=== PATIENT | female | born 1930 | race Caucasian/White ===

== ENCOUNTER 2017-11-03 15:04 | Observation (INO) ==
[2017-11-03] MEDS ORDERED: 0.9 % Sodium Chloride 1,000 ML IVC ONE (15:28)
--- NOTE | 2017-11-03 15:34 | Emergency Department Note ---
Disposition Clinical Impression: UTI (urinary tract infection) Qualifiers: Urinary tract infection type: site unspecified Hematuria presence: without hematuria Qualified Code(s): N39.0 - Urinary tract infection, site not specified Back pain Qualifiers: Back pain location: low back pain Chronicity: unspecified Back pain laterality : midline Sciatica presence: without sciatica Qualified Code(s): M54.5 - Low back pain Altered mental status Qualifiers: Altered mental status type: unspecified Qualified Code(s): R41.82 - Altered mental status, unspecified Disposition: Admitted As Inpatient Condition: Fair Referrals: Zaid Haynes MD [Primary Care Provider] - Forms: ED Satisfaction Letter Time of Disposition: 17:31 Neuro HPI - General Chief Complaint: ED Neuro Symptoms/Deficit Stated Complaint: Neuro stymptoms last know well 1 week Time Seen by Provider: 11/03/17 15:26 Source: patient, family Mode of arrival: ambulatory Limitations: no limitations Nursing Notes Reviewed: Yes Vital Signs Reviewed: Yes - History of Present Illness HPI Narrative: 87-year-old female presents for evaluation of altered mental status lower leg weakness. Patient also has low back pain. Last known was approximately week ago. At that time the patient's family noted the patient did have some slurred speech which appears to be improving. No history of CVAs. Patient has been complaining of atraumatic lower back pain. Patient was seen at the chiropractor today and was noted have decreased reflexes of the left leg. Family also notes the patient has been having urinary incontinence. Patient denies any bowel incontinence. Denies any chest pain short of breath. Family states that the patient is also altered and lives at home without any nursing assistance. Denies any traumas or falls. Denies being on any blood thinners. - Related Data Home Medications: Home Medications Medication Instructions Recorded Confirmed Aspirin/Calcium Carbonate/Mag 325 mg PO TID PRN 11/03/17 11/03/17 [Bufferin 325 mg Tablet] Calcium Carbonate [Calcium] 600 mg PO DAILY 11/03/17 11/03/17 Cholecalciferol (D-3) [Vitamin D] 1,000 unit PO DAILY 11/03/17 11/03/17 Ferrous Sulfate [Iron] 650 mg PO DAILY 11/03/17 11/03/17 Lisinopril [Zestril] 40 mg PO DAILY 11/03/17 11/03/17 Allergies/Adverse Reactions: Allergies Allergy/AdvReac Type Severity Reaction Status Date / Time Penicillins Allergy Hives Verified 11/03/17 15:07 All systems ED: reviewed and negative except as stated. Constitutional: Denies: fever Cardiovascular: Denies: chest pain Respiratory: Denies: cough, dyspnea Gastrointestinal: Denies: abdominal pain, nausea, vomiting Genitourinary: Denies: urgency, dysuria Musculoskeletal: Reports: back pain Past Medical History - Past Medical History Source: patient, obtained from family Medical history: Reports: coronary artery disease, hyperlipidemia, hypertension , osteoporosis Psychiatric history: Reports: no psych history - Social History Smoking Status: Never smoker Smokeless Tobacco Status: No Alcohol use: Reports: none Drug use: Reports: none Physical Exam - General Limitations: no limitations General appearance: alert, in no apparent distress - Head Head exam: atraumatic, normocephalic, normal inspection - Eye Eye exam: Present: normal appearance, PERRL, EOMI - ENT ENT exam: normal exam, normal oropharynx, mucous membranes moist - Neck Neck exam: Present: normal inspection, trachea midline - Chest Chest inspection: Present: normal inspection, symmetric chest wall rise - Respiratory Respiratory exam: Present: normal lung sounds bilaterally. Absent: respiratory distress - Cardiovascular Cardiovascular exam: Present: regular rate, normal rhythm. Absent: systolic murmur - Abdominal Exam Abdominal exam: Present: soft, Non-Tender - Extremities Exam Extremities exam: Present: normal inspection. Absent: pedal edema - Expanded Lower Extremity Exam Hip/Pelvis exam: Present: normal inspection. Absent: tenderness Upper leg exam: Present: normal inspection Knee exam: Present: normal inspection Lower leg exam: Present: normal inspection Ankle exam: Present: normal inspection Neurovascular/Tendon exam: Present: normal capillary refill. Absent: pulse deficit, motor deficit, sensory deficit - Back Exam Back exam: Present: normal inspection, tenderness - Neurological Exam Neurological exam: Present: alert, CN II-XII intact - Expanded Neurological Exam Patient oriented to: Present: person. Absent: place, time Speech: Present: fluid speech Cranial nerves: EOM function (II, III, IV, ): Normal, facial sensation (V): Normal, facial palsy (VII): Normal, spinal accessory function (XI): Normal, tongue deviation (XII): Normal Cerebellar function: finger to nose: Normal Motor strength - LUE: 5/5 Motor strength - RUE: 5/5 Motor strength - LLE: 5/5 Motor strength - RLE: 5/5 Sensory exam upper extremity: light touch: Normal Sensory exam lower extremity: light touch: Normal DTR: patellar (L): 0, patellar (R): 0 Coma Scale Eye Opening: Spontaneous Coma Scale Motor Response: Obeys Commands Coma Scale Verbal Response: Confused Coma Scale Total: 14 Course Vital Signs Temperature 98.2 F 11/03/17 15:07 Pulse Rate 77 11/03/17 15:07 Respiratory Rate 15 11/03/17 15:07 Blood Pressure 165/79 11/03/17 15:07 O2 Sat by Pulse Oximetry 97 11/03/17 15:07 Temperature 98.2 F 11/03/17 15:07 Pulse Rate 77 11/03/17 15:07 Respiratory Rate 15 11/03/17 15:07 Blood Pressure 165/79 11/03/17 15:07 O2 Sat by Pulse Oximetry 97 11/03/17 15:07 Oxygen Delivery Oxygen Delivery Room Air Neuro Symptoms/Deficit - MDM Narrative Medical decision making narrative: 87 year old female patient for evaluation of altered mental status and back pain. Patient does have history of back pain. Patient family is concerned the patient has difficulty ambulating. No recent falls or trauma noted. Clinic visit exam the patient has decreased symmetric reflexes bilaterally with atrophy. Attempted to get MRI of the lumbar spine. Patient was able to get MRI due to history of IVC filter. Patient was noted to have urinary tract infection. Likely explained her urinary incontinence. Patient was also found to have a negative head CT. Patient was not a stroke alert given the time set of symptoms. Patient would benefit from formal PT OT evaluation as well as discharge planning during her hospital course. - Lab Data Lab results reviewed: Yes I reviewed the patient's lab results. Result diagrams: 11/03/17 16:40 11/03/17 16:40 Lab Results 11/03/17 11/03/17 11/03/17 Range/Units 16:39 16:40 16:40 WBC 10.2 (4.3-11.1) K/mcL RBC 5.20 H (3.82-4.97) M/mcL Hgb 12.7 (11.5-15.4) g/dL Hct 41.7 (35.3-44.9) % MCV 80.2 L (83.0-100.0) fL MCH 24.4 L (28.0-33.3) pg MCHC 30.5 L (31.6-35.5) g/dL RDW 18.5 H (11.5-14.5) % Plt Count 224 (140-400) K/mcL MPV 10.9 (9.4-12.4) fL Immature Gran % 0.2 (0-4) % Seg Neutrophils % 55.1 % Lymphocytes % 32.6 % Monocytes % 7.4 % Eosinophils % 3.9 % Basophils % 0.8 % Neutrophils # 5.6 (1.6-8.9) K/mcL Lymphocytes # 3.3 (0.6-4.6) K/mcL Monocytes # 0.8 (0.0-1.3) K/mcL Eosinophils # 0.4 (0.0-0.6) K/mcL Basophils # 0.1 (0.0-0.2) K/mcL PT 10.7 (9.4-12.1) Seconds INR 1.0 APTT 30.2 (26.0-36.0) Seconds Sodium (136-145) mEq/L Potassium (3.5-5.1) mEq/L Chloride (98-107) mEq/L Carbon Dioxide (23-29) mEq/L BUN (8-23) mg/dL Creatinine (0.60-1.20) mg/dL Est GFR ( Amer) (> 60) Est GFR (Non-Af Amer) (> 60) BUN/Creatinine Ratio (6-26) Glucose (70-105) mg/dL Calculated Osmolality (280-300) Calcium (8.6-10.3) mg/dL Creatine Kinase (30-223) Units/L Troponin I (< 0.04) ng/mL Urine Color Yellow (Yellow) Urine Clarity Cloudy A (Clear) Urine pH 6.5 (5.0-8.0) pH Units Ur Specific Lyles 1.013 (1.010-1.025) Urine Protein 30 H (Neg-Trace) mg/dL Urine Glucose (UA) Normal (Normal) mg/dL Urine Ketones Negative (Negative) mg/dL Urine Blood Negative (Negative) Urine Nitrite Negative (Negative) Urine Bilirubin Negative (Negative) Urine Urobilinogen Normal (Normal) mg/dL Ur Leukocyte Esterase Large H (Negative) Urine Microscopic RBC 0-3 (0-3) per hpf Urine Microscopic WBC 50-100 H (0-3) per hpf Ur Squamous Epith Cells Many H (None-Few) per lpf Ur Renal Epithelial Cell Moderate H (None-Few) per hpf Urine Bacteria None Seen (None-Few) per hpf Hyaline Casts None Seen (None-Few) per lpf Ur Culture Indicated? NO. (NO) 11/03/17 11/03/17 11/03/17 Range/Units 16:40 16:40 16:40 WBC (4.3-11.1) K/mcL RBC (3.82-4.97) M/mcL Hgb (11.5-15.4) g/dL Hct (35.3-44.9) % MCV (83.0-100.0) fL MCH (28.0-33.3) pg MCHC (31.6-35.5) g/dL RDW (11.5-14.5) % Plt Count (140-400) K/mcL MPV (9.4-12.4) fL Immature Gran % (0-4) % Seg Neutrophils % % Lymphocytes % % Monocytes % % Eosinophils % % Basophils % % Neutrophils # (1.6-8.9) K/mcL Lymphocytes # (0.6-4.6) K/mcL Monocytes # (0.0-1.3) K/mcL Eosinophils # (0.0-0.6) K/mcL Basophils # (0.0-0.2) K/mcL PT (9.4-12.1) Seconds INR APTT (26.0-36.0) Seconds Sodium 139 (136-145) mEq/L Potassium 3.3 L (3.5-5.1) mEq/L Chloride 103 (98-107) mEq/L Carbon Dioxide 27 (23-29) mEq/L BUN 10 (8-23) mg/dL Creatinine 0.95 (0.60-1.20) mg/dL Est GFR ( Amer) > 60 (> 60) Est GFR (Non-Af Amer) 56 L (> 60) BUN/Creatinine Ratio 11 (6-26) Glucose 92 (70-105) mg/dL Calculated Osmolality 287 (280-300) Calcium 11.5 H (8.6-10.3) mg/dL Creatine Kinase 15 L (30-223) Units/L Troponin I < 0.03 (< 0.04) ng/mL Urine Color (Yellow) Urine Clarity (Clear) Urine pH (5.0-8.0) pH Units Ur Specific Lyles (1.010-1.025) Urine Protein (Neg-Trace) mg/dL Urine Glucose (UA) (Normal) mg/dL Urine Ketones (Negative) mg/dL Urine Blood (Negative) Urine Nitrite (Negative) Urine Bilirubin (Negative) Urine Urobilinogen (Normal) mg/dL Ur Leukocyte Esterase (Negative) Urine Microscopic RBC (0-3) per hpf Urine Microscopic WBC (0-3) per hpf Ur Squamous Epith Cells (None-Few) per lpf Ur Renal Epithelial Cell (None-Few) per hpf Urine Bacteria (None-Few) per hpf Hyaline Casts (None-Few) per lpf Ur Culture Indicated? (NO) - Radiology Data Radiology results reviewed: Yes I reviewed the patient's radiology results. Head CT 11/03/17 15:28 IMPRESSION: 1. No acute intracranial abnormality. 2. 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 3. 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 D/ / 11/03/2017 16:11:32 Denis Tucker MD / heath Interpreting Provider: Denis Tucker MD Chest X-Ray 11/03/17 15:29 IMPRESSION: Hypoaeration without acute process. D/ / 11/03/2017 16:04:09 Nasim Naidu MD / heath Interpreting Provider: Nasim Naidu MD - EKG Data EKG attestation: Yes I reviewed and interpreted this EKG. EKG shows normal: sinus rhythm Rate: normal Rhythm: NSR [place]/QRS: normal T wave inversions noted in: v1, v2, v3 When compared to previous EKG there are: changes noted Interpretation: nonspecific ST-T wave changes S.B.A.Brooke. - S.Karl Situation: Demographics Background: Presenting Complaint Assessment: Vital Signs, Course and respsone to treatment, Patient/Family Expectation Recommendation: Barrier(s) to disposition, Recommendation based on pending studies, treatments, or consults SKirti Report Given to: Luis West Repor Time: 17:30 Attestation Statement - Attestation Attestation: I examined this patient and my medical decision-making was reviewed with the Resident Physician. I agree with the documented findings, disposition and treatment plan as described except to the extent set forth below. Patient presents to the ED with weakness. Patient sent in by her chiropractor. She has been on some neurologic symptoms for a week. Difficulty with speech. Dragging her left leg. Urinary incontinence. There concern for UTI. Possible stroke. Patient has a history of dementia. On examination she is awake alert. Pleasantly confused. Diminished but symmetric patellar reflexes + 1 bilaterally. Sensation intact. No tenderness over the lumbar spine. Plan. Stroke workup with imaging of the spine. Unable to MRI her spine as they cannot find the information on her Jeevan filter. We will CT and admit. Patient has a UTI. Antibiotics given.
[2017-11-03 16:55] LABS: Basophils # 0.1 K/mcL (0.0-0.2); Basophils % 0.8 %; Eosinophils # 0.4 K/mcL (0.0-0.6); Eosinophils % 3.9 %; Hematocrit 41.7 % (35.3-44.9); Hemoglobin 12.7 g/dL (11.5-15.4); Immature Granulocytes % 0.2 % (0-4); Lymphocytes # 3.3 K/mcL (0.6-4.6); Lymphocytes % 32.6 %; Mean Corpuscular HGB Conc 30.5 g/dL (31.6-35.5); Mean Corpuscular Hemoglobin 24.4 pg (28.0-33.3); Mean Corpuscular Volume 80.2 fL (83.0-100.0); Mean Platelet Volume 10.9 fL (9.4-12.4); Monocytes # 0.8 K/mcL (0.0-1.3); Monocytes % 7.4 %; Neutrophils # 5.6 K/mcL (1.6-8.9); Platelet Count 224 K/mcL (140-400); Red Cell Distribution Width 18.5 % (11.5-14.5); Segmented Neutrophils % 55.1 %
[2017-11-03 16:55] LABS: Bilirubin,Urine Negative (Negative); Blood,Urine Negative (Negative); Clarity,Urine Cloudy (Clear); Color,Urine Yellow (Yellow); Glucose,Urine (UA) Normal (Normal); Ketones,Urine Negative (Negative); Leukocyte Esterase,Urine Large (Negative); Nitrite,Urine Negative (Negative); PH,Urine 6.5 pH Units (5.0-8.0); Protein,Urine 30 mg/dL (Neg-Trace); Specific Gravity,Urine 1.013 (1.010-1.025); Urobilinogen,Urine Normal (Normal)
[2017-11-03 16:57] LABS: Bacteria,Urine None Seen per hpf (None-Few); Hyaline Casts,Urine None Seen per lpf (None-Few); RBC,Urine 0-3 per hpf (0-3); Squamous Epithelial Cell,Urine Many per lpf (None-Few); WBC,Urine 50-100 per hpf (0-3)
[2017-11-03 17:03] LABS: Prothrombin Time 10.7 Seconds (9.4-12.1)
[2017-11-03 17:06] LABS: Activated Partial Thrombo Time 30.2 Seconds (26.0-36.0)
[2017-11-03 17:10] LABS: BUN/Creatinine Ratio 11 (6-26); Blood Urea Nitrogen 10 mg/dL (8-23); Calcium 11.5 mg/dL (8.6-10.3); Carbon Dioxide 27 mEq/L (23-29); Chloride 103 mEq/L (98-107); Glucose 92 mg/dL (70-105); Osmolality,Calculated 287 (280-300); Potassium 3.3 mEq/L (3.5-5.1); Sodium 139 mEq/L (136-145); eGFR For African Americans > 60 (> 60); eGFR For Non-African Americans 56 (> 60)
[2017-11-03 17:17] LABS: Renal Epithelial Cells,Urine Moderate per hpf (None-Few)
[2017-11-03] MEDS ORDERED: cefTRIAXone 1,000 MG in Water for inj. (sterile) 20 ML 10 ML IVP ONE (17:29)
--- NOTE | 2017-11-03 20:12 | Internal Med History&Physical ---
Date of Encounter: 11/03/17 Time of Encounter: 20:09 Assessment and Plan (1) Spinal stenosis Current visit: Yes Status: Acute Severe spinal stenosis with mild impingement E CT of the lumbosacral spine for detail will consult Dr. Sierra Qualifiers: Spinal region: lumbosacral Qualified Code(s): M48.07 - Spinal stenosis, lumbosacral region (2) HTN (hypertension) Current visit: Yes Status: Chronic Chronic Uncontrolled Resume Home Medication Adjustment Qualifiers: Hypertension type: essential hypertension Qualified Code(s): I10 - Essential (primary) hypertension (3) Hyperlipidemia Current visit: Yes Status: Chronic Chronic recheck in a.m. Qualifiers: Hyperlipidemia type: pure hypercholesterolemia Qualified Code(s): E78.00 - Pure hypercholesterolemia, unspecified; E78.0 - Pure hypercholesterolemia (4) Altered mental status Current visit: Yes Status: Acute More confused with slow family will consult neurology for further evaluation patient unable to undergo MRI due to IVC filter Qualifiers: Altered mental status type: disorientation Qualified Code(s): R41.0 - Disorientation, unspecified (5) Back pain Current visit: Yes Status: Acute Chronic but worsening pain due to severe spinal stenosis with nerve impingement Qualifiers: Back pain location: low back pain Chronicity: unspecified Back pain laterality: midline Sciatica presence: with sciatica Sciatica laterality: bilateral sciatica Qualified Code(s): M54.41 - Lumbago with sciatica, right side; M54.42 - Lumbago with sciatica, left side; M54.42 - Lumbago with sciatica , left side Internal Medicine - H&P: HPI Chief complaint: bilat leg weakness Admitted From: Emergency Dept Plans for Post Hospital Care: Home History of present illness: Ms. Ceja is a 87 year old female Patient with history of hypertension, CAD, high cholesterol, osteoporosis, patient was brought in by family due to mental status changes of some confusion but more concerning is bilateral leg weakness and worsening low back pain family also noticed some slurred speech she was taken to a chiropractor today and the chiropractor on exam noted s bilateral decreased reflexes of both lower extremity and that she was has sent to the emergency room family also reported urinary incontinence and difficulty ambulating the family said almost have to carry herto the bathroom and back to bed Evaluation in the ER ct of lumbar sacral spine shows severe central, lumbar stenosis with impingement of the L4 roots. Patient will be admitted for further evaluation will consult spinal surgery Dr. Bharat Sierra family also concern about poor po intake Past Med Surg Social Fam HX - Past Medical History Medical history: coronary artery disease, hyperlipidemia, hypertension, osteoporosis Psychiatric history: no psych history - Social History Smoking Status: Never smoker Smokeless Tobacco Status: No Alcohol use: none Drug use: none Internal Medicine - H&P: Meds Aspirin/Calcium Carbonate/Mag [Bufferin 325 mg Tablet] 325 mg PO TID PRN [History] Calcium Carbonate [Calcium] 600 mg PO DAILY 11/03/17 [History] Cholecalciferol (D-3) [Vitamin D] 1,000 unit PO DAILY 11/03/17 [History] Ferrous Sulfate [Iron] 650 mg PO DAILY 11/03/17 [History] Lisinopril [Zestril] 40 mg PO DAILY 11/03/17 [History] 3 Allergy/AdvReac Type Severity Reaction Status Date / Time Penicillins Allergy Hives Verified 11/03/17 15:07 All Systems PM: A 10-system review of systems was performed and is negative for pertinent findings except as documented above in the HPI. - Constitutional Constitutional: anorexia - EENT Eyes: no change in vision, no discharge, no pain, no photophobia Ears: no ear discharge, no ear pain, no tinnitus Nose, mouth and throat: no dysphagia, no nasal discharge, no neck pain, no sore throat - Cardiovascular Cardiovascular ROS IM: no chest pain, no diaphoresis, no dyspnea, no lightheadedness, no palpitations, no syncope - Respiratory Respiratory: no cough, no dyspnea, no wheezing, no excessive phlegm production - Gastrointestinal Additional comments: urinary incontinence - Constitutional Vitals: Temp Pulse Resp BP Pulse Ox 98.2 F 72 16 180/98 96 11/03/17 15:07 11/03/17 18:37 11/03/17 19:36 11/03/17 19:36 11/03/17 18:37 General appearance: Present: mild distress - Eye Eye exam: Present: PERRL, conjuntiva pink, sclera anicteric Pupils: Present: PERRL - Neck Neck exam general surgery: Present: supple, trachea midline. Absent: lymphadenopathy - Respiratory Respiratory exam: Present: CTAB. Absent: accessory muscle use, rales, rhonchi, wheezes - Cardiovascular Cardiovascular exam: Present: RRR, +S1, +S2. Absent: diastolic murmur, gallop, rubs, systolic murmur - GI/Abdominal GI/Abdominal exam: Present: normal bowel sounds, soft, no peritoneal signs. Absent: distended, tenderness Internal Med - H&P Results - Labs CBC & Chem 7: 11/03/17 16:40 11/03/17 16:40
[2017-11-03] MEDS ORDERED: Acetaminophen 325 MG TABLET PO PRN (20:20)
[2017-11-03] MEDS ORDERED: Naloxone 0.4 MG/ML INJ IVP PRN (20:20)
[2017-11-03] MEDS ORDERED: traMADol 50 MG TABLET PO PRN (20:20)
[2017-11-03] MEDS ORDERED: Aspirin Enteric Coated 325 MG Tablet PO PRN (20:22)
[2017-11-03] MEDS ORDERED: 0.9 % Sodium Chloride 1,000 ML ONE (20:43)
[2017-11-03] MEDS: 0.9 % Sodium Chloride 1,000 ML IVC SCH (23:13)
[2017-11-04 04:37] LABS: Hematocrit 41.3 % (35.3-44.9); Hemoglobin 12.5 g/dL (11.5-15.4); Mean Corpuscular HGB Conc 30.3 g/dL (31.6-35.5); Mean Corpuscular Hemoglobin 24.6 pg (28.0-33.3); Mean Corpuscular Volume 81.3 fL (83.0-100.0); Mean Platelet Volume 11.7 fL (9.4-12.4); Platelet Count 213 K/mcL (140-400); Red Blood Count 5.08 M/mcL (3.82-4.97); Red Cell Distribution Width 18.5 % (11.5-14.5)
[2017-11-04 04:59] LABS: Alanine Aminotransferase 10 Units/L (7-52); Albumin 3.6 g/dL (3.5-5.7); Albumin/Globulin Ratio 1.2 (1.1-2.2); Alkaline Phosphatase 53 Units/L (34-104); Aspartate Amino Transferase 15 Units/L (13-39); BUN/Creatinine Ratio 9 (6-26); Bilirubin,Total 0.3 mg/dL (0.3-1.0); Blood Urea Nitrogen 8 mg/dL (8-23); Calcium 10.4 mg/dL (8.6-10.3); Carbon Dioxide 26 mEq/L (23-29); Chloride 110 mEq/L (98-107); Globulin 2.9 g/dL (2.4-3.5); Glucose 91 mg/dL (70-105); Magnesium 1.8 mg/dL (1.6-2.6); Osmolality,Calculated 294 (280-300); Potassium 3.2 mEq/L (3.5-5.1); Sodium 143 mEq/L (136-145); Total Protein 6.5 g/dL (6.4-8.9); eGFR For African Americans > 60 (> 60); eGFR For Non-African Americans 60 (> 60)
[2017-11-04] MEDS ORDERED: *HR* Enoxaparin 40 MG/0.4 ML SYRINGE SQ SCH (06:00)
[2017-11-04] MEDS ORDERED: cefTRIAXone 1,000 MG in Water for inj. (sterile) 20 ML 10 ML IVP SCH (09:00)
[2017-11-04] MEDS: Cholecalciferol (D-3) 1,000 UNIT TABLET PO SCH (09:31)
[2017-11-04] MEDS: Lisinopril 20 MG TABLET PO SCH (09:31)
[2017-11-04] MEDS: amLODIPine 5 MG TABLET PO SCH (09:31)
[2017-11-04] MEDS: hydroCHLOROthiazide 25 MG TABLET PO SCH (09:31)
[2017-11-04 09:56] LABS: Bilirubin,Urine Negative (Negative); Blood,Urine Negative (Negative); Clarity,Urine Clear (Clear); Color,Urine Yellow (Yellow); Glucose,Urine (UA) Normal (Normal); Ketones,Urine Negative (Negative); Leukocyte Esterase,Urine Negative (Negative); Nitrite,Urine Negative (Negative); Protein,Urine Trace mg/dL (Neg-Trace); Specific Gravity,Urine 1.012 (1.010-1.025); Urobilinogen,Urine Normal (Normal)
--- NOTE | 2017-11-04 09:58 | Neurology - Consult Note ---
<BonillapopLuis lyles - Last Filed: 11/04/17 09:53> Date of Encounter: 11/04/17 Time of Encounter: 09:53 Assessment and Plan (1) Altered mental status Current Visit: Yes Status: Acute Mrs. Ceja 87-year-old female admitted with diminished bilateral lower extremity strength and absence reflexes with associated change in mental status. Upon evaluation patient was not answering questions appropriately. Chart review demonstrates that the patient's family was concerned that she was slurring her speech and mental status was worse but improved by the time the patient was brought to the emergency room. - I am unsure of the patient's baseline cognitive status, she appears to be confused and only oriented to herself. She does not bring up any hallucinations or concerning findings for acute delirium. Unsure if she has a history of dementia, we will need to discuss with family for further identification of her cognitive baseline. - Clinical evaluation is not concerning for acute stroke, correlated with imaging. CT of the brain demonstrates no acute intracranial abnormalities. 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 - Calcium level 10.4, previously 11.5, patient is taking Calciferol and calcium carbonate as part of her home medications. Her current level is slightly elevated but I do not believe this is related to her acute change in mental status. Plan: - Primary team ruling out infectious process that could be associated with acute delirium - Needs know patient's baseline mental status for evaluation for deviation from her baseline. - Qualifiers: Altered mental status type: disorientation Qualified Code(s): R41.0 - Disorientation, unspecified (2) Spinal stenosis of lumbar region Current Visit: Yes Status: Acute Patient presented with worsening of bilateral lower extremity weakness, diminished deep tendon reflexes in her patellar and Achilles bilaterally. Clinical exam correlates with poor musculature diffusely, patient is able to follow commands, symmetric strength bilateral lower extremities. -No loss in Rectal tone CT of Lumbar spine: BONES/ALIGNMENT: No acute bony abnormalities are found. The bones appear demineralized. DEGENERATIVE CHANGES: There is multilevel degenerative disc and facet disease. Note that evaluation of disc disease is limited with CT technique. T12-L1: Small diffuse disc bulge. No significant central or foraminal stenosis. L1-L2: Small diffuse disc bulge/ osteophyte complex. No significant central or foraminal stenosis. L2-L3: Moderate diffuse disc bulge/ osteophyte complex. Mild bilateral facet hypertrophy. Changes result in at least moderate central canal stenosis. No significant foraminal stenosis. L3-L4: Small to moderate diffuse disc bulge. Mild bilateral facet hypertrophy and ligamentum flavum hypertrophy. At least mild to moderate central canal stenosis. Mild bilateral foraminal stenosis. L4-L5: Large disc bulge, eccentric to the left. Moderate bilateral facet hypertrophy and ligamentum flavum hypertrophy. Changes lead to at least moderate to severe central canal stenosis, again not well evaluated with CT technique. There is suggestion of severe bilateral foraminal stenosis, with impingement upon the exiting L4 nerve roots bilaterally. L5-S1: Moderate diffuse disc bulge/osteophyte complex, eccentric to the left. Mild central canal stenosis. Moderate to severe bilateral foraminal stenosis. Clinical examination correlates with L4 nerve root impingement. - Primary team has consulted Dr. Sierra Qualifiers: Qualified Code(s): M48.062 - Spinal stenosis, lumbar region with neurogenic claudication (3) Left adrenal mass Current Visit: Yes Status: Acute CT of the lumbar spine picked up a low density lesion within the left adrenal gland measuring 3 cm. - Defer management to primary team. History of Present Illness Chief complaint: confusion and decreased reflexes in LE HPI: Ms. Ceja is a 87 year old female significant past history for hypertension, CAD , HLD, osteoporosis, osteoarthritis was brought to the emergency department with diminished strength and reflexes in bilateral lower extremities and worsening of confusion. Upon examination and evaluation there was no family present. The patient was alert and oriented to self only. She did not give appropriate responses but did follow commands appropriately. Upon chart review the patient's family had noted some worsening of her mental status, slurred speech that was improving at the time of evaluation emergency department. Patient was also complaining of low back pain and urinary incontinence. Upon evaluation today the patient denies any pain or concerns. Past Med Surg Social Fam HX - Past Medical History Medical history: coronary artery disease, hyperlipidemia, hypertension, osteoporosis Psychiatric history: no psych history - Social History Smoking Status: Never smoker Smokeless Tobacco Status: No Alcohol use: none Drug use: none Medications and Allergies Aspirin/Calcium Carbonate/Mag [Bufferin 325 mg Tablet] 325 mg PO TID PRN [History] Calcium Carbonate [Calcium] 600 mg PO DAILY 11/03/17 [History] Cholecalciferol (D-3) [Vitamin D] 1,000 unit PO DAILY 11/03/17 [History] Ferrous Sulfate [Iron] 650 mg PO DAILY 11/03/17 [History] Lisinopril [Zestril] 40 mg PO DAILY 11/03/17 [History] 3 Allergy/AdvReac Type Severity Reaction Status Date / Time Penicillins Allergy Hives Verified 11/03/17 15:07 ROS unobtainable: due to mental status All Systems: A 10-system review of systems was performed and is negative for pertinent findings except as documented above in the HPI. Physical Examination - Vital Signs Vital Signs: Initial Vital Signs Temp Pulse Resp BP Pulse Ox 98.2 F 77 15 165/79 97 11/03/17 15:07 11/03/17 15:07 11/03/17 15:07 11/03/17 15:07 11/03/17 15:07 - Exam Exam: Gen. alert interactive, confused follows commands appropriately as not appear to be in any acute distress HEENT: Normocephalic, atraumatic, pupils equal reactive to light, patient's cataracts more so on the right compared to the left, EOMI, neck supple trachea midline. No signs of facial droop or tongue deviation. Cardiac: Regular rate and rhythm, positive systolic ejection murmur grade 3/6, radial pulses and posterior tibial pulses 2+ bilateral. Respiratory: Clear to auscultation bilaterally Muscle skeletal: Patient has diffuse findings of osteoarthritis with deviations in her DIP, PIP joints bilaterally, enlarged knee joints without erythema edema appear to be chronic likely secondary to osteoarthritis. Patient has diffusely poor musculature with bilateral hamstrings more diminished compared to quadriceps. MSK strength: Patient has symmetric 4 out of 5 muscle strength in bilateral upper extremities, she has symmetric 4 out of 5 strength in hip flexors, knee extension. She has 3 out of 5 more so on the left compared to the right muscle strength and hip extensors and knee flexion and dorsi and plantar flexion. Sensory: Grossly sensory appears to be intact : Rectal tone intact ( Bryson: [employer] Lina) Deep tendon reflexes: 2+ bilateral biceps, brachial radialis and triceps. Absent on patellar and Achilles reflexes, no clonus appreciated. - Cranial nerves II through XII intact - Constitutional General appearance: comfortable - Neurologic Sensorimotor examination: intact Mental Status Examination: awake, alert, oriented to person, follows commands appropriately Results - Laboratory Findings CBC and BMP: 11/04/17 03:34 11/04/17 03:34 Abnormal lab findings: Abnormal lab results RBC 5.08 M/mcL (3.82-4.97) H 11/04/17 03:34 MCV 81.3 fL (83.0-100.0) L 11/04/17 03:34 MCH 24.6 pg (28.0-33.3) L 11/04/17 03:34 MCHC 30.3 g/dL (31.6-35.5) L 11/04/17 03:34 RDW 18.5 % (11.5-14.5) H 11/04/17 03:34 Potassium 3.2 mEq/L (3.5-5.1) L 11/04/17 03:34 Chloride 110 mEq/L (98-107) H 11/04/17 03:34 Calcium 10.4 mg/dL (8.6-10.3) H 11/04/17 03:34 Creatine Kinase 15 Units/L (30-223) L 11/03/17 16:40 Urine Clarity Cloudy (Clear) A 11/03/17 16:39 Urine Protein 30 mg/dL (Neg-Trace) H 11/03/17 16:39 Ur Leukocyte Esterase Large (Negative) H 11/03/17 16:39 Urine Microscopic WBC 50-100 per hpf (0-3) H 11/03/17 16:39 Ur Squamous Epith Cells Many per lpf (None-Few) H 11/03/17 16:39 Ur Renal Epithelial Cell Moderate per hpf (None-Few) H 11/03/17 16:39 Consult Discharge Plan - Plan Referrals: aZid Haynes MD [Primary Care Provider] - <Vikas Wasserman I - Last Filed: 11/04/17 16:10> Date of Encounter: 11/04/17 History of Present Illness HPI: Ms. Ceja is a 87 year old female All Systems: A 10-system review of systems was performed and is negative for pertinent findings except as documented above in the HPI. Physical Examination - Vital Signs Vital Signs: Initial Vital Signs Temp Pulse Resp BP Pulse Ox 98.2 F 77 15 165/79 97 11/03/17 15:07 11/03/17 15:07 11/03/17 15:07 11/03/17 15:07 11/03/17 15:07 Results - Laboratory Findings CBC and BMP: 11/04/17 03:34 11/04/17 03:34 Abnormal lab findings: Abnormal lab results RBC 5.08 M/mcL (3.82-4.97) H 11/04/17 03:34 MCV 81.3 fL (83.0-100.0) L 11/04/17 03:34 MCH 24.6 pg (28.0-33.3) L 11/04/17 03:34 MCHC 30.3 g/dL (31.6-35.5) L 11/04/17 03:34 RDW 18.5 % (11.5-14.5) H 11/04/17 03:34 Potassium 3.2 mEq/L (3.5-5.1) L 11/04/17 03:34 Chloride 110 mEq/L (98-107) H 11/04/17 03:34 Calcium 10.4 mg/dL (8.6-10.3) H 11/04/17 03:34 Creatine Kinase 15 Units/L (30-223) L 11/03/17 16:40 Urine Microscopic RBC 3-5 per hpf (0-3) H 11/04/17 09:30 Ur Renal Epithelial Cell Moderate per hpf (None-Few) H 11/03/17 16:39 - Attending Attestation I examined this patient and my medical decision-making was reviewed with the Resident Physician, I agree with the documented findings, disposition and treatment plan as described except to the extent set forth below. Concerning overall symptoms really doubt it is related to a stroke CT scan did not show any acute abnormality. As far as her lower extremity symptoms are concerned she did have significant stenosis lumbar spine along with degenerative changes that could be causing lower extremity weakness and difficulty with ambulation. I really doubt she is a surgical candidate probably benefit from short-term rehabilitation. For confusion which seems to be gradual suggested check for underlying metabolic abnormalities and particularly to check for vitamin B12 folate TSH or any other metabolic dysfunction that may be making her symptoms worse and at the same time also check for any underlying infection like a UTI. Patient would benefit from short-term rehabilitation. Vikas Wasserman MD
[2017-11-04 10:01] LABS: Bacteria,Urine None Seen per hpf (None-Few); Hyaline Casts,Urine None Seen per lpf (None-Few); Squamous Epithelial Cell,Urine None Seen per lpf (None-Few); WBC,Urine 0-3 per hpf (0-3)
[2017-11-04] MEDS: 0.9 % Sodium Chloride 1,000 ML IVC SCH (10:12)
--- NOTE | 2017-11-04 18:39 | Internal Med Progress Note ---
Date of Encounter: 11/04/17 Time of Encounter: 11:00 - Assessment and plan (1) Weakness Current Visit: Yes Status: Acute Assessment and plan: Family states today that they were concerned over increasing weakness, difficulty with lifting her left leg. They stated that she already has decreased reflexes in the concerned for stroke symptoms. She was at chiropractor 3 days ago, he noted a difference in her neurological exam and with Center to the emergency department for evaluation of stroke. Family reports in addition to difficulty with raising her left leg for the last 2 weeks , she has had intermittent episodes of slurred speech. Patient does not appear to have any focal neurological deficits and her speech was clear during evaluation. Her head CT was negative for anything acute that it does show cerebral parenchymal volume loss as well as remote CVA and right occipital lobe and posterior limb of the right internal capsule/right thalamus. 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 Neurology has evaluated the patient today. The green and there is no concern for acute stroke and we will continue to monitor for her baseline mental status. Patient was able to answer name and place today. Continue to monitor for safety. Vesicle therapy and occupational therapy consultations or an impending. Continue to monitor for mental status (2) Back pain Current Visit: Yes Status: Chronic Assessment and plan: Chronic. Patient has severe spinal stenosis with nerve impingement. Continue home medications. Dr. Sierra consultation is in impending. Neurology has evaluated patient and have signed off. Physical therapy and occupational therapy consultations in and pending. Qualifiers: Back pain location: low back pain Chronicity: unspecified Back pain laterality: midline Sciatica presence: with sciatica Sciatica laterality: bilateral sciatica Qualified Code(s): M54.41 - Lumbago with sciatica, right side; M54.42 - Lumbago with sciatica, left side; M54.42 - Lumbago with sciatica , left side (3) Spinal stenosis Current Visit: Yes Status: Chronic Assessment and plan: Chronic. Severe spinal stenosis with mild impingement of lumbosacral spine. Dr. Sierra has been consulted. I appreciate his recommendations consultation. Qualifiers: Spinal region: lumbosacral Qualified Code(s): M48.07 - Spinal stenosis, lumbosacral region (4) HTN (hypertension) Current Visit: Yes Status: Chronic Assessment and plan: Chronic. Well controlled in the hospital after addition of hydrochlorothiazide 25 mg by mouth daily. Continue home medications and monitor vitals per admission order. Qualifiers: Hypertension type: essential hypertension Qualified Code(s): I10 - Essential (primary) hypertension (5) Hyperlipidemia Current Visit: Yes Status: Chronic Assessment and plan: Chronic. Continue home medications. Qualifiers: Hyperlipidemia type: pure hypercholesterolemia Qualified Code(s): E78.00 - Pure hypercholesterolemia, unspecified; E78.0 - Pure hypercholesterolemia - Time Spent With Patient less than 15 minutes - Subjective Interval history: Patient was seen and evaluated at bedside. and grandson were at bedside. All questions were answered. Family reports that they were mostly concerned with stroke symptoms at home. Patient was at a chiropractor 3 days ago he noticed a difference in her neurological exam and sent her to the emergency department for evaluation. Family also reports a loss of appetite with the patient she is not eating as much recently. Patient denies any headache or blurred vision, no dizziness no chest pain or shortness of breath, she denies abdominal pain, nausea, vomiting, or diarrhea. - Constitutional Vitals: Temp Pulse Resp BP Pulse Ox 97.9 F 79 16 145/75 97 11/04/17 15:39 11/04/17 15:39 11/04/17 15:39 11/04/17 15:39 11/04/17 15:39 General appearance: Present: cooperative, mild distress, A&O X 3, pleasant, answers questions appropriately - Head Head exam: Present: atraumatic, normal inspection, normocephalic - Eye Eye exam: Present: normal appearance, conjuntiva pink, sclera anicteric - Neck Neck exam general surgery: Present: supple, trachea midline. Absent: lymphadenopathy - Respiratory Respiratory exam: Present: CTAB. Absent: accessory muscle use, rales, rhonchi, wheezes - Cardiovascular Cardiovascular exam: Present: RRR, +S1, +S2. Absent: diastolic murmur, gallop, irregular rhythm, rubs, systolic murmur - GI/Abdominal GI/Abdominal exam: Present: normal bowel sounds, soft. Absent: distended, tenderness - Extremities Exam Extremities exam: Present: normal capillary refill, normal inspection, warm, radial pulses palpable and symmetrical. Absent: calf tenderness, cyanotic, pedal edema, tenderness - Neurological Exam Neurological exam: Present: alert, oriented X3, no focal deficits, strengths equal and symetr throughout. Absent: pronater drift, facial droop, speech deficit - Skin Skin exam: Present: dry, intact, normal color, rash, warm Internal Medicine: Result - Labs CBC & Chem 7: 11/04/17 03:34 11/04/17 03:34 Labs: Short CBC 11/04/17 Range/Units 03:34 WBC 8.5 (4.3-11.1) K/mcL Hgb 12.5 (11.5-15.4) g/dL Hct 41.3 (35.3-44.9) % Plt Count 213 (140-400) K/mcL BMP 11/04/17 03:34 Sodium 143 Potassium 3.2 L Chloride 110 H Carbon Dioxide 26 BUN 8 Creatinine 0.90 Glucose 91 Calcium 10.4 H Cardiac Enzymes 11/03/17 11/04/17 11/04/17 Range/Units 22:22 03:34 13:36 Troponin I < 0.03 < 0.03 < 0.03 (< 0.04) ng/mL Liver Function 11/04/17 Range/Units 03:34 Total Bilirubin 0.3 (0.3-1.0) mg/dL AST 15 (13-39) Units/L ALT 10 (7-52) Units/L Alkaline Phosphatase 53 (34-104) Units/L Albumin 3.6 (3.5-5.7) g/dL Urine 11/04/17 Range/Units 09:30 Urine Color Yellow (Yellow) Urine Clarity Clear (Clear) Urine pH 7.0 (5.0-8.0) pH Units Ur Specific [place] 1.012 (1.010-1.025) Urine Protein Trace (Neg-Trace) mg/dL Urine Glucose (UA) Normal (Normal) mg/dL - ABG Interpretation ABG results: PT/INR, D-dimer PT 10.7 Seconds (9.4-12.1) 11/03/17 16:40 Consult Discharge Plan - Plan Referrals: Zaid Haynes MD [Primary Care Provider] -
[2017-11-05] MEDS: *HR* Enoxaparin 30 MG/0.3 ML SYRINGE SQ SCH (05:47)
[2017-11-05] MEDS: hydroCHLOROthiazide 25 MG TABLET PO SCH (09:26)
[2017-11-05] MEDS: amLODIPine 5 MG TABLET PO SCH (09:26)
[2017-11-05] MEDS: Cholecalciferol (D-3) 1,000 UNIT TABLET PO SCH (09:27)
[2017-11-05] MEDS: Lisinopril 20 MG TABLET PO SCH (09:28)
--- NOTE | 2017-11-05 10:06 | Neurology Progress Note ---
Date of Encounter: 11/05/17 Time of Encounter: 08:15 Assessment and Plan (1) Spinal stenosis of lumbar region Current Visit: Yes Status: Acute Patient has an history of low difficulty with ambulation severe stenosis is noted on CT scan of the lumbar spine likely causing the symptoms in the lower extremities. Suggestive conservative management including rehabilitation pain management without narcotics may benefit from muscle relaxers. Qualifiers: Neurogenic claudication status: unspecified Qualified Code(s): M48.061 - Spinal stenosis, lumbar region without neurogenic claudication (2) Altered mental status Current Visit: Yes Status: Acute Baseline patient likely has mild dementia. Overall she is a stable no evidence of acute stroke on CT scan on examination. Suggest continue to treat underlying metabolic dysfunction as well as any UTIs. Also check for vitamin B12 folate and TSH if not done yet. She may benefit from short-term rehabilitation. No further neurological workup is indicated at this time Qualifiers: Altered mental status type: disorientation Qualified Code(s): R41.0 - Disorientation, unspecified Subjective Interval history: Patient seems to be stable denies any other new problems or any other new symptoms awake able to have a conversation. CT scan did not show any acute abnormality evidence of old infarct. Objective - Constitutional Vitals: Temp Pulse Resp BP Pulse Ox 98.3 F 82 18 130/67 95 11/05/17 07:23 11/05/17 07:23 11/05/17 07:23 11/05/17 07:23 11/05/17 07:23 - Neurological Exam Sensorimotor examination: Present: intact Mental Status Examination: Present: awake, alert, oriented to person, follows commands appropriately Results - Laboratory Findings CBC and BMP: 11/04/17 03:34 11/04/17 03:34 Abnormal lab findings: Abnormal lab results RBC 5.08 M/mcL (3.82-4.97) H 11/04/17 03:34 MCV 81.3 fL (83.0-100.0) L 11/04/17 03:34 MCH 24.6 pg (28.0-33.3) L 11/04/17 03:34 MCHC 30.3 g/dL (31.6-35.5) L 11/04/17 03:34 RDW 18.5 % (11.5-14.5) H 11/04/17 03:34 Potassium 3.2 mEq/L (3.5-5.1) L 11/04/17 03:34 Chloride 110 mEq/L (98-107) H 11/04/17 03:34 Calcium 10.4 mg/dL (8.6-10.3) H 11/04/17 03:34 Creatine Kinase 15 Units/L (30-223) L 11/03/17 16:40 Urine Microscopic RBC 3-5 per hpf (0-3) H 11/04/17 09:30 Ur Renal Epithelial Cell Moderate per hpf (None-Few) H 11/03/17 16:39 Consult Discharge Plan - Plan Referrals: Zaid Haynes MD [Primary Care Provider] -
--- NOTE | 2017-11-05 16:22 | Spinal Consult Note ---
Date of Encounter: 11/05/17 Time of Encounter: 16:19 Assessment and Plan (1) Spinal stenosis of lumbar region Current Visit: Yes Status: Chronic On exam she is lying in bed in no acute distress. She is a poor historian. She is able to fire all upper extremity motor groups with fair to good strength approximately 4 on a motor scale. She has significant knee arthritis an enlarged knee joints with contractures at the knees with a lack of approximately 30 degrees of extension of her bilateral knees. She is able to dorsiflex and plantarflex with fair strength. I detect no focal neurologic deficit. She has a negative Gely sign. She has no clonus. Her hips move symmetrically. CT scan of the lumbar spine reveals multilevel degenerative changes. There is moderate to severe stenosis at L4-5 associated with moderate severe bilateral foraminal stenosis at this level. Impression: 1) Lumbar stenosis 2) subjective leg weakness without focal neurologic deficit Plan: I doubt if this patient will require any surgical intervention. I would like to get an MRI of her lumbar spine to rule out any focal lesion which may explain her weakness as this is the optimal study for evaluation. This patient will need rehabilitation and strengthening gait training at the rehabilitation facility. She should begin lower extremity strengthening and gait training at this hospital until discharge. Qualifiers: Neurogenic claudication status: without neurogenic claudication Qualified Code(s): M48.061 - Spinal stenosis, lumbar region without neurogenic claudication History of Present Illness Chief complaint: Leg weakness, possible altered mental status HPI: Ms. Ceja is a 87 year old female Who is a poor historian but apparently has had some worsening weakness in the lower extremities. Her baseline is ambulation with a cane. She states she is still able to do this. She was found on CT examination to have some moderate stenosis we are asked to see regarding treatment recommendations for her stenosis and lower extremity weakness. Workup by the neurology service has been essentially negative to date. I do not have convincing evidence by history that she is having altered bowel or bladder symptomatology. Patient is unaware she has had a previous pacemaker placed but we do have a CT scan of her lumbar spine available for review. She denies any fevers or chills Past Med Surg Social Fam HX - Past Medical History Medical history: coronary artery disease, hyperlipidemia, hypertension, osteoporosis Psychiatric history: no psych history - Social History Smoking Status: Never smoker Smokeless Tobacco Status: No Alcohol use: none Drug use: none Medications and Allergies Aspirin/Calcium Carbonate/Mag [Bufferin 325 mg Tablet] 325 mg PO TID PRN [History] Calcium Carbonate [Calcium] 600 mg PO DAILY 11/03/17 [History] Cholecalciferol (D-3) [Vitamin D] 1,000 unit PO DAILY 11/03/17 [History] Ferrous Sulfate [Iron] 650 mg PO DAILY 11/03/17 [History] Lisinopril [Zestril] 40 mg PO DAILY 11/03/17 [History] 3 Allergy/AdvReac Type Severity Reaction Status Date / Time Penicillins Allergy Hives Verified 11/03/17 15:07 Results - Labs Result Diagrams: 11/04/17 03:34 11/04/17 03:34 Labs: Abnormal lab results RBC 5.08 M/mcL (3.82-4.97) H 11/04/17 03:34 MCV 81.3 fL (83.0-100.0) L 11/04/17 03:34 MCH 24.6 pg (28.0-33.3) L 11/04/17 03:34 MCHC 30.3 g/dL (31.6-35.5) L 11/04/17 03:34 RDW 18.5 % (11.5-14.5) H 11/04/17 03:34 Potassium 3.2 mEq/L (3.5-5.1) L 11/04/17 03:34 Chloride 110 mEq/L (98-107) H 11/04/17 03:34 Calcium 10.4 mg/dL (8.6-10.3) H 11/04/17 03:34 Creatine Kinase 15 Units/L (30-223) L 11/03/17 16:40 Urine Microscopic RBC 3-5 per hpf (0-3) H 11/04/17 09:30 Ur Renal Epithelial Cell Moderate per hpf (None-Few) H 11/03/17 16:39 All other labs normal. Consult Discharge Plan - Plan Referrals: Zaid Haynes MD [Primary Care Provider] -
--- NOTE | 2017-11-05 16:46 | Internal Med Progress Note ---
Date of Encounter: 11/05/17 Time of Encounter: 10:10 - Assessment and plan (1) Weakness Current Visit: Yes Status: Acute Assessment and plan: Patient does not appear to have any focal neurological deficits and her speech was clear during evaluation. She is alert and pleasant and is oriented to name only. Her head CT was negative for acute, it does show cerebral parenchymal volume loss as well as remote CVA and right occipital lobe and posterior limb of the right internal capsule/right thalamus. 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 Neurology has evaluated the patient today. They recommend checking B12 and folate, TSH. They do not feel that further neurological workup is necessary at this time. Dr. Sierra is on board. I appreciate his recommendations and consultation. Continue to monitor for safety. Physical therapy and occupational therapy consultations in and pending. Continue to monitor for mental status (2) Back pain Current Visit: Yes Status: Chronic Assessment and plan: Chronic. Patient has severe spinal stenosis with nerve impingement. Continue home medications. Dr. Sierra following. Neurology has evaluated patient and have signed off. Physical therapy and occupational therapy consultations in and pending. Qualifiers: Back pain location: low back pain Chronicity: unspecified Back pain laterality: midline Sciatica presence: with sciatica Sciatica laterality: bilateral sciatica Qualified Code(s): M54.41 - Lumbago with sciatica, right side; M54.42 - Lumbago with sciatica, left side; M54.42 - Lumbago with sciatica , left side (3) Spinal stenosis Current Visit: Yes Status: Chronic Assessment and plan: Plan as above. Qualifiers: Spinal region: lumbosacral Qualified Code(s): M48.07 - Spinal stenosis, lumbosacral region (4) HTN (hypertension) Current Visit: Yes Status: Chronic Assessment and plan: Chronic. Well controlled in the hospital after addition of hydrochlorothiazide 25 mg by mouth daily. Continue home medications and monitor vitals per admission order. Qualifiers: Hypertension type: essential hypertension Qualified Code(s): I10 - Essential (primary) hypertension (5) Hyperlipidemia Current Visit: Yes Status: Chronic Assessment and plan: Chronic. Continue home medications. Qualifiers: Hyperlipidemia type: pure hypercholesterolemia Qualified Code(s): E78.00 - Pure hypercholesterolemia, unspecified; E78.0 - Pure hypercholesterolemia - Time Spent With Patient less than 15 minutes - Subjective Interval history: Patient was seen and evaluated at bedside at 1010 a.m. Patient denies any headache or blurred vision, no dizziness no chest pain or shortness of breath, she denies abdominal pain, nausea, vomiting, or diarrhea. She states that her back pain is at baseline. We are waiting on PT/OT for recommendations. - Constitutional Vitals: Temp Pulse Resp BP Pulse Ox 98.5 F 90 18 179/74 97 11/05/17 15:54 11/05/17 15:54 11/05/17 15:54 11/05/17 15:54 11/05/17 15:54 General appearance: Present: cooperative, mild distress, A&O X 3, pleasant, answers questions appropriately - Head Head exam: Present: atraumatic, normal inspection, normocephalic - Eye Eye exam: Present: normal appearance, conjuntiva pink, sclera anicteric - Neck Neck exam general surgery: Present: supple, trachea midline. Absent: lymphadenopathy - Respiratory Respiratory exam: Present: CTAB. Absent: accessory muscle use, rales, rhonchi, wheezes - Cardiovascular Cardiovascular exam: Present: RRR, +S1, +S2. Absent: diastolic murmur, gallop, irregular rhythm, rubs, systolic murmur - GI/Abdominal GI/Abdominal exam: Present: normal bowel sounds, soft. Absent: distended, hepatomegaly, tenderness - Extremities Exam Extremities exam: Present: normal capillary refill, normal inspection, warm, radial pulses palpable and symmetrical. Absent: calf tenderness, cyanotic, pedal edema - Neurological Exam Neurological exam: Present: alert, altered, no focal deficits. Absent: oriented X3, facial droop, speech deficit - Skin Skin exam: Present: dry, intact, normal color, warm. Absent: rash Internal Medicine: Result - Labs CBC & Chem 7: 11/04/17 03:34 11/04/17 03:34 - ABG Interpretation ABG results: PT/INR, D-dimer PT 10.7 Seconds (9.4-12.1) 11/03/17 16:40 Consult Discharge Plan - Plan Referrals: Zaid Haynes MD [Primary Care Provider] -
[2017-11-06] MEDS: *HR* Enoxaparin 30 MG/0.3 ML SYRINGE SQ SCH (05:52)
[2017-11-06] MEDS: amLODIPine 5 MG TABLET PO SCH (07:59)
[2017-11-06] MEDS: Lisinopril 20 MG TABLET PO SCH (07:59)
[2017-11-06] MEDS: Cholecalciferol (D-3) 1,000 UNIT TABLET PO SCH (07:59)
[2017-11-06] MEDS: hydroCHLOROthiazide 25 MG TABLET PO SCH (07:59)
--- NOTE | 2017-11-06 14:14 | Internal Med Progress Note ---
Date of Encounter: 11/06/17 Time of Encounter: 08:45 - Assessment and plan (1) Weakness Current Visit: Yes Status: Acute Assessment and plan: Patient does not appear to have any focal neurological deficits and her speech was clear during evaluation. She is alert and pleasant and is oriented to name only. Her head CT was negative for acute, it does show cerebral parenchymal volume loss as well as remote CVA and right occipital lobe and posterior limb of the right internal capsule/right thalamus. 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 Neurology evaluated pt, they recommend checking B12 and folate, TSH. They do not feel that further neurological workup is necessary at this time. Dr. Sierra is on board, ordered MRI which pt cannot have d/t IVC filter. Continue to monitor for safety. PT/OT recommend SNF, SW aware. Continue to monitor for mental status (2) Back pain Current Visit: Yes Status: Chronic Assessment and plan: Chronic. Patient has severe spinal stenosis with nerve impingement. Continue home medications. Dr. Sierra following. Pt cannot have MRI due to IVC filter. Neurology has evaluated patient and have signed off. PT/OT recommend SNF, placement pending. Qualifiers: Back pain location: low back pain Chronicity: unspecified Back pain laterality: midline Sciatica presence: with sciatica Sciatica laterality: bilateral sciatica Qualified Code(s): M54.41 - Lumbago with sciatica, right side; M54.42 - Lumbago with sciatica, left side; M54.42 - Lumbago with sciatica , left side (3) Spinal stenosis Current Visit: Yes Status: Chronic Assessment and plan: Plan as above. Pain is at baseline per pt. Qualifiers: Spinal region: lumbosacral Qualified Code(s): M48.07 - Spinal stenosis, lumbosacral region (4) HTN (hypertension) Current Visit: Yes Status: Chronic Assessment and plan: Chronic. Well controlled in the hospital after addition of hydrochlorothiazide 25 mg by mouth daily. Continue home medications and monitor vitals per admission order. Qualifiers: Hypertension type: essential hypertension Qualified Code(s): I10 - Essential (primary) hypertension (5) Hyperlipidemia Current Visit: Yes Status: Chronic Assessment and plan: Chronic. Continue home medications. Qualifiers: Hyperlipidemia type: pure hypercholesterolemia Qualified Code(s): E78.00 - Pure hypercholesterolemia, unspecified; E78.0 - Pure hypercholesterolemia (6) DVT prophylaxis Current Visit: Yes Status: Acute Assessment and plan: Lovenox SQ daily - Time Spent With Patient less than 15 minutes - Subjective Interval history: Patient was seen and evaluated at bedside at 0845 a.m. Patient denies any headache or blurred vision, no dizziness no chest pain or shortness of breath, she denies abdominal pain, nausea, vomiting, or diarrhea. She states that her back pain is at baseline. She is alert, oriented to name only. PT/OT have recommended SNF, aware and asks for a place in [place], [place]. I have spoken to the SW and she will attempt to start placement. - Constitutional Vitals: Temp Pulse Resp BP Pulse Ox 98.1 F 92 15 127/76 96 11/06/17 12:19 11/06/17 12:19 11/06/17 12:19 11/06/17 12:19 11/06/17 12:19 General appearance: Present: cooperative, A&O X 1, mild distress, pleasant, no acute distress, answers questions appropriately - Head Head exam: Present: atraumatic, normal inspection, normocephalic - Eye Eye exam: Present: normal appearance, conjuntiva pink, sclera anicteric - Neck Neck exam general surgery: Present: normal inspection, supple, trachea midline. Absent: lymphadenopathy, tenderness - Respiratory Respiratory exam: Present: CTAB. Absent: accessory muscle use, rales, rhonchi, wheezes - Cardiovascular Cardiovascular exam: Present: RRR, +S1, +S2. Absent: diastolic murmur, gallop, rubs, systolic murmur - GI/Abdominal GI/Abdominal exam: Present: normal bowel sounds, soft. Absent: distended, hepatomegaly, tenderness - Extremities Exam Extremities exam: Present: normal capillary refill, normal inspection, warm, radial pulses palpable and symmetrical. Absent: calf tenderness, cyanotic, pedal edema, tenderness - Neurological Exam Neurological exam: Present: alert, altered, no focal deficits. Absent: oriented X3, facial droop, speech deficit - Skin Skin exam: Present: dry, intact, normal color, warm. Absent: rash Internal Medicine: Result - Labs CBC & Chem 7: 11/04/17 03:34 11/04/17 03:34 - ABG Interpretation ABG results: PT/INR, D-dimer PT 10.7 Seconds (9.4-12.1) 11/03/17 16:40 Consult Discharge Plan - Plan Referrals: Zaid Haynes MD [Primary Care Provider] -
[2017-11-07 03:50] LABS: Folate 8.8 ng/mL (3.0-16.0)
[2017-11-07] MEDS: *HR* Enoxaparin 30 MG/0.3 ML SYRINGE SQ SCH (05:58)
[2017-11-07] MEDS: Lisinopril 20 MG TABLET PO SCH (07:58)
[2017-11-07] MEDS: hydroCHLOROthiazide 25 MG TABLET PO SCH (07:58)
[2017-11-07] MEDS: Cholecalciferol (D-3) 1,000 UNIT TABLET PO SCH (07:58)
[2017-11-07] MEDS: amLODIPine 5 MG TABLET PO SCH (07:58)
--- NOTE | 2017-11-07 09:46 | Internal Med Progress Note ---
Date of Encounter: 11/07/17 Time of Encounter: 08:15 - Assessment and plan (1) Weakness Current Visit: Yes Status: Acute Assessment and plan: Patient does not appear to have any focal neurological deficits and her speech was clear during evaluation. She is alert and pleasant and is oriented to name only. Neurology evaluated pt, they recommend checking B12 and folate, TSH. They do not feel that further neurological workup is necessary at this time. Dr. Sierra is on board, ordered MRI which pt cannot have d/t IVC filter. Recommends PT. Continue to monitor for safety. PT/OT recommend SNF, SW aware. Attempting placement. Continue to monitor for mental status (2) Back pain Current Visit: Yes Status: Chronic Assessment and plan: Chronic. Patient has severe spinal stenosis with nerve impingement. Pt denies change or worsening of back pain. Continue home medications. Dr. Sierra following. Pt cannot have MRI due to IVC filter. Recommends PT. Neurology has evaluated patient and have signed off. PT/OT recommend SNF, placement pending. Qualifiers: Back pain location: low back pain Chronicity: unspecified Back pain laterality: midline Sciatica presence: with sciatica Sciatica laterality: bilateral sciatica Qualified Code(s): M54.41 - Lumbago with sciatica, right side; M54.42 - Lumbago with sciatica, left side; M54.42 - Lumbago with sciatica , left side (3) Spinal stenosis Current Visit: Yes Status: Chronic Assessment and plan: Plan as above. Pain is at baseline per pt. Qualifiers: Spinal region: lumbosacral Qualified Code(s): M48.07 - Spinal stenosis, lumbosacral region (4) HTN (hypertension) Current Visit: Yes Status: Chronic Assessment and plan: Chronic. Well controlled in the hospital after addition of hydrochlorothiazide 25 mg by mouth daily. Continue home medications. Monitor vitals per admission order. Qualifiers: Hypertension type: essential hypertension Qualified Code(s): I10 - Essential (primary) hypertension (5) Hyperlipidemia Current Visit: Yes Status: Chronic Assessment and plan: Chronic. Continue home medications. Qualifiers: Hyperlipidemia type: pure hypercholesterolemia Qualified Code(s): E78.00 - Pure hypercholesterolemia, unspecified; E78.0 - Pure hypercholesterolemia (6) DVT prophylaxis Current Visit: Yes Status: Acute Assessment and plan: Lovenox SQ daily. Encourage ambulation with assistance. - Time Spent With Patient less than 15 minutes - Subjective Interval history: Patient was seen and evaluated at bedside at 0815 a.m. Patient denies any headache or blurred vision, no dizziness no chest pain or shortness of breath, she denies abdominal pain, nausea, vomiting, or diarrhea. She states that her back "is fine" and denies change or increase in pain. She is alert, oriented to name only. Pt awaiting placement at [facility], SS on board. - Constitutional Vitals: Temp Pulse Resp BP Pulse Ox 98.4 F 76 14 100/58 94 11/07/17 07:42 11/07/17 07:42 11/07/17 07:42 11/07/17 07:42 11/07/17 07:42 General appearance: Present: cooperative, A&O X 1, mild distress, pleasant, no acute distress, answers questions appropriately - Head Head exam: Present: atraumatic, normal inspection, normocephalic - Eye Eye exam: Present: normal appearance, conjuntiva pink, sclera anicteric - Neck Neck exam general surgery: Present: normal inspection, supple, trachea midline. Absent: lymphadenopathy, tenderness - Respiratory Respiratory exam: Present: CTAB. Absent: accessory muscle use, decreased breath sounds, rales, rhonchi, wheezes - Cardiovascular Cardiovascular exam: Present: RRR, +S1, +S2. Absent: diastolic murmur, gallop, rubs, systolic murmur - GI/Abdominal GI/Abdominal exam: Present: normal bowel sounds, soft, no peritoneal signs. Absent: distended, hepatomegaly, tenderness - Extremities Exam Extremities exam: Present: normal capillary refill, normal inspection, warm, radial pulses palpable and symmetrical. Absent: calf tenderness, cyanotic, joint swelling, pedal edema, tenderness - Neurological Exam Neurological exam: Present: alert, altered, no focal deficits. Absent: oriented X3, facial droop, speech deficit - Skin Skin exam: Present: dry, intact, normal color, warm. Absent: rash Internal Medicine: Result - Labs CBC & Chem 7: 11/04/17 03:34 11/06/17 14:36 Labs: BMP 11/06/17 14:36 Potassium 4.2 - ABG Interpretation ABG results: PT/INR, D-dimer PT 10.7 Seconds (9.4-12.1) 11/03/17 16:40 Consult Discharge Plan - Plan Referrals: Zaid Haynes MD [Primary Care Provider] -
--- NOTE | 2017-11-07 17:56 | Electrocardiograph Report ---
[place] [id number] Test Date: 2017-11-04 Pat Name: Cherry Ceja Department: 113 Room: 3B21 Gender: Female Student Success Coach: : 1930 Requested By: Tanika Turcios Order Number: [id number] Reading MD: Michelle Silver Measurements Intervals [place] Rate: 68 P: 36 [place]: 204 QRS: -11 QRSD: 105 T: 88 QT: 401 QTc: 418 Interpretive Statements SINUS RHYTHM NONSPECIFIC T-WAVE ABNORMALITY Electronically Signed On 11-07-2017 17:54:22 EST by Michelle Silver
[2017-11-08 05:12] LABS: Calcium 12.8 mg/dL (8.6-10.3); Potassium 4.9 mEq/L (3.5-5.1)
[2017-11-08] MEDS: *HR* Enoxaparin 30 MG/0.3 ML SYRINGE SQ SCH (06:21)
[2017-11-08] MEDS: hydroCHLOROthiazide 25 MG TABLET PO SCH (10:05)
[2017-11-08] MEDS: Lisinopril 20 MG TABLET PO SCH (10:05)
[2017-11-08] MEDS: amLODIPine 5 MG TABLET PO SCH (10:06)
[2017-11-08] MEDS: Cholecalciferol (D-3) 1,000 UNIT TABLET PO SCH (10:06)
[2017-11-08] MEDS: *HR* HYDROcodone/Acet 5/325 mg TABLET PO PRN (12:37)
[2017-11-08] MEDS: 0.9 % Sodium Chloride 1,000 ML IVC SCH (12:38)
--- NOTE | 2017-11-08 13:23 | Internal Med Progress Note ---
Date of Encounter: 11/08/17 Time of Encounter: 07:55 - Assessment and plan (1) Weakness Current Visit: Yes Status: Acute Assessment and plan: Patient does not appear to have any focal neurological deficits. She is alert and pleasant and is oriented to name only. Neurology evaluated pt, they recommend checking B12 and folate, TSH, which are WNL. They do not feel that further neurological workup is necessary at this time. Dr. Sierra is on board, ordered MRI which pt cannot have d/t IVC filter. Recommends PT. Continue to monitor for safety. PT/OT recommend SNF, SW aware. Attempting placement. Continue to monitor for mental status changes. (2) Back pain Current Visit: Yes Status: Chronic Assessment and plan: Chronic. Patient has severe spinal stenosis with nerve impingement. Pt denies change or worsening of back pain. Continue home medications. Dr. Sierra following. Pt cannot have MRI due to IVC filter. Recommends PT. Neurology has evaluated patient and have signed off, no further recommendations. PT/OT recommend SNF, placement pending. SW on board. Not expecting placement today due to holiday. Qualifiers: Back pain location: low back pain Chronicity: unspecified Back pain laterality: midline Sciatica presence: with sciatica Sciatica laterality: bilateral sciatica Qualified Code(s): M54.41 - Lumbago with sciatica, right side; M54.42 - Lumbago with sciatica, left side; M54.42 - Lumbago with sciatica , left side (3) Spinal stenosis Current Visit: Yes Status: Chronic Assessment and plan: Plan as above. Pain is at baseline per pt. She denies need for more medications Qualifiers: Spinal region: lumbosacral Qualified Code(s): M48.07 - Spinal stenosis, lumbosacral region (4) HTN (hypertension) Current Visit: Yes Status: Chronic Assessment and plan: Chronic. Added HCTZ here, well controlled. Continue home medications. Monitor vitals per admission order. Qualifiers: Hypertension type: essential hypertension Qualified Code(s): I10 - Essential (primary) hypertension (5) Hyperlipidemia Current Visit: Yes Status: Chronic Assessment and plan: Chronic. Continue home medications. Qualifiers: Hyperlipidemia type: pure hypercholesterolemia Qualified Code(s): E78.00 - Pure hypercholesterolemia, unspecified; E78.0 - Pure hypercholesterolemia (6) DVT prophylaxis Current Visit: Yes Status: Acute Assessment and plan: Lovenox SQ daily. Encourage ambulation with assistance. - Time Spent With Patient less than 15 minutes - Subjective Interval history: Patient was seen and evaluated at bedside at 0755 a.m. Patient denies any headache, chest pain, abdominal pain, nausea, vomiting, or diarrhea. She states that her back is "ok". She is alert, oriented to name only, repeatedly asks if we are sure that we won't lose her while she is here. Pt wants us to make sure that we let her parents know that she is here. Pt awaiting placement at [facility], SS on board. - Constitutional Vitals: Temp Pulse Resp BP Pulse Ox 97.8 F 87 16 118/80 95 11/08/17 11:57 11/08/17 11:57 11/08/17 11:57 11/08/17 11:57 11/08/17 11:57 General appearance: Present: cooperative, A&O X 1, mild distress, pleasant, no acute distress, answers questions appropriately - Head Head exam: Present: atraumatic, normal inspection, normocephalic - Eye Eye exam: Present: normal appearance, conjuntiva pink, sclera anicteric - Neck Neck exam general surgery: Present: normal inspection, supple, trachea midline. Absent: lymphadenopathy, tenderness - Respiratory Respiratory exam: Present: CTAB. Absent: accessory muscle use, rales, respiratory distress, rhonchi, wheezes - Cardiovascular Cardiovascular exam: Present: RRR, +S1, +S2. Absent: diastolic murmur, gallop, rubs, systolic murmur - GI/Abdominal GI/Abdominal exam: Present: normal bowel sounds, soft, no peritoneal signs. Absent: distended, hepatomegaly, tenderness - Extremities Exam Extremities exam: Present: normal capillary refill, normal inspection, warm, radial pulses palpable and symmetrical. Absent: calf tenderness, cyanotic, pedal edema, tenderness - Neurological Exam Neurological exam: Present: alert, oriented X3, no focal deficits. Absent: facial droop, speech deficit - Skin Skin exam: Present: dry, intact, normal color, warm. Absent: rash Internal Medicine: Result - Labs CBC & Chem 7: 11/04/17 03:34 11/08/17 03:47 Labs: BMP 11/08/17 03:47 Sodium 137 Potassium 4.9 Chloride 108 H Carbon Dioxide 19 L BUN 14 Creatinine 1.63 H Glucose 90 Calcium 12.8 H - ABG Interpretation ABG results: PT/INR, D-dimer PT 10.7 Seconds (9.4-12.1) 11/03/17 16:40 Consult Discharge Plan - Plan Referrals: Zaid Haynes MD [Primary Care Provider] -
[2017-11-08] MEDS: Megestrol Acetate 400 MG/10 ML UDC PO SCH (15:46)
[2017-11-09] MEDS: 0.9 % Sodium Chloride 1,000 ML IVC SCH ×2 (01:58→14:54)
[2017-11-09 04:40] LABS: Calcium 11.9 mg/dL (8.6-10.3); Potassium 4.2 mEq/L (3.5-5.1)
[2017-11-09] MEDS: *HR* Enoxaparin 30 MG/0.3 ML SYRINGE SQ SCH (06:33)
[2017-11-09] MEDS: hydroCHLOROthiazide 25 MG TABLET PO SCH (09:53)
[2017-11-09] MEDS: Lisinopril 20 MG TABLET PO SCH (09:53)
[2017-11-09] MEDS: Megestrol Acetate 400 MG/10 ML UDC PO SCH (09:53)
[2017-11-09] MEDS: Cholecalciferol (D-3) 1,000 UNIT TABLET PO SCH (09:54)
[2017-11-09] MEDS: amLODIPine 5 MG TABLET PO SCH (09:54)
[2017-11-09] MEDS: *HR* HYDROcodone/Acet 5/325 mg TABLET PO PRN (11:25)
--- NOTE | 2017-11-09 14:38 | Internal Med Progress Note ---
Date of Encounter: 11/09/17 Time of Encounter: 14:33 - Assessment and plan (1) Spinal stenosis Current Visit: Yes Status: Chronic Assessment and plan: hx severe spinal stenosis with nerve impingement. Symptomatic with generalized weakness and back pain. Pt cannot have MRI due to IVC filter. Evaluated Dr. Sierra who recommended PT/OT. PT/OT recommend SNF, placement pending. Qualifiers: Spinal region: lumbosacral Qualified Code(s): M48.07 - Spinal stenosis, lumbosacral region (2) PEGGY (acute kidney injury) Current Visit: Yes Status: Acute Assessment and plan: Cr 1.6; baseline normal. Secondary to poor PO intake and nephrotoxic agent, Cont IV fluids, hold SHAYNA, HCTZ. (3) HTN (hypertension) Current Visit: Yes Status: Chronic Assessment and plan: per hx. HCTZ stopped. Cont norvasc. Monitor BP and titrate PRN Qualifiers: Hypertension type: essential hypertension Qualified Code(s): I10 - Essential (primary) hypertension (4) Hyperlipidemia Current Visit: Yes Status: Chronic Assessment and plan: Chronic. Continue home medications. Qualifiers: Hyperlipidemia type: pure hypercholesterolemia Qualified Code(s): E78.00 - Pure hypercholesterolemia, unspecified; E78.0 - Pure hypercholesterolemia (5) DVT prophylaxis Current Visit: Yes Status: Acute Assessment and plan: heparin - Subjective Interval history: Seen and examined at bedside, patient is new to me. Information obtained from chart review and patient report. She says she feels fine; has no complaints other than wanting to leave. She specifically denies chest pain, no shortness of breath. - Constitutional Vitals: Temp Pulse Resp BP Pulse Ox 98.3 F 88 18 144/78 95 11/09/17 11:43 11/09/17 11:43 11/09/17 11:43 11/09/17 11:43 11/09/17 11:43 General appearance: Present: cooperative, A&O X 1, pleasant, no acute distress, answers questions appropriately - Head Head exam: Present: atraumatic, normocephalic - Eye Eye exam: Present: PERRL, conjuntiva pink, sclera anicteric Pupils: Present: PERRL - Neck Neck exam general surgery: Present: supple, trachea midline. Absent: lymphadenopathy - Respiratory Respiratory exam: Present: CTAB. Absent: accessory muscle use, rales, rhonchi, wheezes - Cardiovascular Cardiovascular exam: Present: RRR, +S1, +S2. Absent: diastolic murmur, gallop, rubs, systolic murmur - GI/Abdominal GI/Abdominal exam: Present: normal bowel sounds, soft, no peritoneal signs. Absent: distended, tenderness - Extremities Exam Extremities exam: Present: warm, radial pulses palpable and symmetrical. Absent : calf tenderness, cyanotic, pedal edema - Neurological Exam Neurological exam: Present: CN II-XII intact, oriented X3, no focal deficits. Absent: pronater drift, facial droop, speech deficit - Skin Skin exam: Present: dry, intact Internal Medicine: Result - Labs CBC & Chem 7: 11/04/17 03:34 11/09/17 04:02 Labs: BMP 11/09/17 04:02 Sodium 139 Potassium 4.2 Chloride 113 H Carbon Dioxide 20 L BUN 18 Creatinine 1.69 H Glucose 100 Calcium 11.9 H - ABG Interpretation ABG results: PT/INR, D-dimer PT 10.7 Seconds (9.4-12.1) 11/03/17 16:40 Consult Discharge Plan - Plan Referrals: Zaid Haynes MD [Primary Care Provider] -
[2017-11-10] MEDS: 0.9 % Sodium Chloride 1,000 ML IVC SCH (01:13)
--- NOTE | 2017-11-10 01:55 | Electrocardiograph Report ---
[place] [id number] Test Date: 2017-11-03 Pat Name: Cherry Ceja Department: 102 Room: 3B21 Gender: F Event Promoter: : 1930 Requested By: Jayme Lemons Order Number: [id number] Reading MD: Lisbeth Davis Measurements Intervals [place] Rate: 76 P: 29 [place]: 205 QRS: -12 QRSD: 92 T: 38 QT: 393 QTc: 423 Interpretive Statements SINUS RHYTHM INCOMPLETE RIGHT BUNDLE BRANCH BLOCK [90+ ms QRS DURATION, TERMINAL R IN V1/V2, 40+ ms S IN I/aVL/V4/V5/V6] NONSPECIFIC ST & T-WAVE ABNORMALITY Electronically Signed On 11-10-2017 1:53:42 EST by Lisbeth Davis
[2017-11-10 07:29] LABS: Potassium 3.6 mEq/L (3.5-5.1)
[2017-11-10] MEDS: Megestrol Acetate 400 MG/10 ML UDC PO SCH (08:30)
[2017-11-10] MEDS: Cholecalciferol (D-3) 1,000 UNIT TABLET PO SCH (08:30)
[2017-11-10] MEDS: amLODIPine 5 MG TABLET PO SCH (08:30)
--- NOTE | 2017-11-10 09:18 | Internal Med Progress Note ---
Date of Encounter: 11/10/17 Time of Encounter: 09:16 - Assessment and plan (1) Spinal stenosis Current Visit: Yes Status: Chronic Assessment and plan: presented with back pain and lower extremity weakness. Lumbar spine CT shows severe central spinal stenosis with severe bilateral foraminal stenosis. Further evaluation with lumbar spine MRI is recommended however unable to do IVC. Evaluated by Dr. Sierra (spine ortho) who did not feel surgical intervention indicated at this time. Still with lower back pain and lower extremity edema however able to ambulate. No paresthesias, no saddle anesthesias or bowel/bladder incontinence. PT/OT recommend SNF, placement pending. Qualifiers: Spinal region: lumbosacral Qualified Code(s): M48.07 - Spinal stenosis, lumbosacral region (2) PEGGY (acute kidney injury) Current Visit: Yes Status: Acute Assessment and plan: Cr 1.6; baseline normal. Secondary to poor PO intake combined with home SHAYNA, HCTZ. Cont IV fluids, hold SHAYNA, HCTZ. Cr 1.4 on 11/10 (3) FTT (failure to thrive) in adult Current Visit: Yes Status: Acute Assessment and plan: with poor PO intake. Cont ensure supplements, megace. Encourage PO intake (4) Acute metabolic encephalopathy Current Visit: Yes Status: Acute Assessment and plan: per chart review, family noted slurred speech and increased confusion but improved by the time the patient was brought to the emergency room. Head CT with evidence of prior, chronic infarcts and cerebral pericardial volume loss, otherwise nonacute. UA not indicative of UTI. Evaluated by neurology who did not feel acute stroke was cause of symptoms. Unable to have brain MRI due to IVC filter. SPECT she has underlying dementia with possible superimposed delirium. Mental status returned to baseline. No further workup at this time. (5) HTN (hypertension) Current Visit: Yes Status: Chronic Assessment and plan: per hx. HCTZ stopped. Cont norvasc. BP controlled. Monitor BP and titrate PRN Qualifiers: Hypertension type: essential hypertension Qualified Code(s): I10 - Essential (primary) hypertension (6) Hyperlipidemia Current Visit: Yes Status: Chronic Assessment and plan: per hx. Cont home statin. Qualifiers: Hyperlipidemia type: pure hypercholesterolemia Qualified Code(s): E78.00 - Pure hypercholesterolemia, unspecified; E78.0 - Pure hypercholesterolemia (7) History of CVA (cerebrovascular accident) without residual deficits Current Visit: Yes Status: Acute Assessment and plan: per hx. Head CT with evidence of old infarcts, otherwise nonacute. Continue home ASA. (8) DVT prophylaxis Current Visit: Yes Status: Acute Assessment and plan: heparin - Subjective Interval history: Seen and examined at bedside; sitting up in bed eating breakfast. Appears comfortable. Says she feels about the same, she is asking about discharge. Advised patient we are still waiting for insurance prior authorization. Says she still feels overall weak but she has been up ambulating to and from the bathroom. No numbness or tingling, no bowel or bladder incontinence. No family at bedside. - Constitutional Vitals: Temp Pulse Resp BP Pulse Ox 98.4 F 73 18 137/75 96 11/10/17 07:08 11/10/17 07:08 11/10/17 07:08 11/10/17 07:08 11/10/17 07:08 General appearance: Present: cooperative, A&O X 2, pleasant, no acute distress, answers questions appropriately - Head Head exam: Present: atraumatic, normocephalic - Eye Eye exam: Present: PERRL, conjuntiva pink, sclera anicteric Pupils: Present: PERRL - Neck Neck exam general surgery: Present: supple, trachea midline. Absent: lymphadenopathy - Respiratory Respiratory exam: Present: CTAB. Absent: accessory muscle use, rales, rhonchi, wheezes - Cardiovascular Cardiovascular exam: Present: RRR, +S1, +S2. Absent: diastolic murmur, gallop, rubs, systolic murmur - GI/Abdominal GI/Abdominal exam: Present: normal bowel sounds, soft, no peritoneal signs. Absent: distended, tenderness - Extremities Exam Extremities exam: Present: warm, radial pulses palpable and symmetrical. Absent : calf tenderness, cyanotic, pedal edema - Neurological Exam Neurological exam: Present: CN II-XII intact, oriented X3, no focal deficits. Absent: pronater drift, facial droop, speech deficit - Skin Skin exam: Present: dry, intact Internal Medicine: Result - Labs CBC & Chem 7: 11/04/17 03:34 11/10/17 06:51 Labs: BMP 11/10/17 06:51 Sodium 138 Potassium 3.6 Chloride 111 H Carbon Dioxide 20 L BUN 15 Creatinine 1.42 H Glucose 89 Calcium 12.0 H - ABG Interpretation ABG results: PT/INR, D-dimer PT 10.7 Seconds (9.4-12.1) 11/03/17 16:40 Consult Discharge Plan - Plan Referrals: Zaid Haynes MD [Primary Care Provider] -
[2017-11-10 15:25] VITALS: BP 143/76
--- NOTE | 2017-11-10 16:45 | Discharge Summary ---
- NOTES TO OUTPATIENT PROVIDER Notes to Outpatient Provider: Renal function needs to be monitored. Monitor BP closely; SHAYNA was stopped due to PEGGY Orders not resulted at time of discharge: Pending orders 11/11/17 04:00 BMP [Basic Metabolic Panel] AM 0400 Date of Encounter: 11/10/17 Time of Encounter: 16:42 - Discharge Diagnosis (1) Spinal stenosis Priority: Primary Status: Acute Comments: presented with back pain and lower extremity weakness. Lumbar spine CT shows severe central spinal stenosis with severe bilateral foraminal stenosis. Further evaluation with lumbar spine MRI is recommended however unable to do IVC. Evaluated by Dr. Sierra (spine ortho) who did not feel surgical intervention indicated at this time. Still with lower back pain and lower extremity edema however able to ambulate. No paresthesias, no saddle anesthesias or bowel/bladder incontinence. PT/OT recommend SNF Qualifiers: Spinal region: lumbosacral Qualified Code(s): M48.07 - Spinal stenosis, lumbosacral region (2) PEGGY (acute kidney injury) Priority: Primary Status: Acute Comments: Cr 1.6; baseline normal. Secondary to poor PO intake combined with home SHAYNA, HCTZ. Cont IV fluids, hold SHAYNA, HCTZ. Cr 1.4 on 11/10/17. Renal function will need to be monitored at SNF (3) FTT (failure to thrive) in adult Priority: Primary Status: Acute Comments: with poor PO intake. Cont ensure supplements, megace. Encourage PO intake (4) Acute metabolic encephalopathy Priority: Primary Status: Acute Comments: per chart review, family noted slurred speech and increased confusion but improved by the time the patient was brought to the emergency room. Head CT with evidence of prior, chronic infarcts and cerebral pericardial volume loss, otherwise nonacute. UA not indicative of UTI. Evaluated by neurology who did not feel acute stroke was cause of symptoms. Unable to have brain MRI due to IVC filter. SPECT she has underlying dementia with possible superimposed delirium. Mental status returned to baseline. No further workup at this time. (5) HTN (hypertension) Priority: Secondary Status: Chronic Comments: per hx. HCTZ, SHAYNA stopped. Cont norvasc. BP controlled. BP can be monitored at SNF Qualifiers: Hypertension type: essential hypertension Qualified Code(s): I10 - Essential (primary) hypertension (6) Hyperlipidemia Priority: Secondary Status: Chronic Comments: per hx. Cont home statin. Qualifiers: Hyperlipidemia type: pure hypercholesterolemia Qualified Code(s): E78.00 - Pure hypercholesterolemia, unspecified; E78.0 - Pure hypercholesterolemia (7) History of CVA (cerebrovascular accident) without residual deficits Priority: Secondary Status: Chronic Comments: per hx. Head CT with evidence of old infarcts, otherwise nonacute. Continue home ASA. Hospital course: See 11/10/2017 progress note for details - Time Spent with Patient Total time spent providing and/or coordinating discharge services: - Discharge Medications Home Medications: Aspirin/Calcium Carbonate/Mag [Bufferin 325 mg Tablet] 325 mg PO TID PRN [History] Calcium Carbonate [Calcium] 600 mg PO DAILY 11/03/17 [History] Cholecalciferol (D-3) [Vitamin D] 1,000 unit PO DAILY 11/03/17 [History] Ferrous Sulfate [Iron] 650 mg PO DAILY 11/03/17 [History] Acetaminophen [Tylenol] 650 mg PO Q6HR PRN tablet 11/10/17 [Rx] Megestrol Acetate [Megace] 400 mg PO DAILY udc 11/10/17 [Rx] amLODIPine [Norvasc] 10 mg PO DAILY tablet 11/10/17 [Rx] Allergies/Adverse Reactions: 3 Allergy/AdvReac Type Severity Reaction Status Date / Time Penicillins Allergy Hives Verified 11/03/17 15:07 Date of admission: 11/03/17 18:40 Primary care physician: Zaid Haynes MD Consults: 11/03/17 20:22 Consult to Physician [CONS] Routine Consulting Provider: Bharat Sierra Jr Reason for Consult: severe spinal stenosis with nerve impigement Time Notified: 20:24 Call Completed: No 11/03/17 20:24 Consult to Neurology [CONS] Routine Consulting Provider: [facility] Reason for Consult: confusion and slurred speech Time Notified: 20:25 Call Completed: No 11/03/17 20:25 Consult to Senior Grants Officer [CONS] Routine Reason for SW Consult: discahrge planning consult to peoplesoft [Consult to Nutrition] [CONS] Routine Comment: Consulting Provider: NUTRITION Reason for Dietary Consult: PO Supplementation 11/04/17 10:07 Consult to Physical Therapy [CONS] Routine Comment: Evaluate, develop and implement POC Reason for Consult: Evaluate for ECF placment 11/04/17 10:08 Consult to Occupational Therapy [CONS] Routine Comment: Evaluate, develop and implement POC Reason for Consult: Evaluate for ECF placement Discharging clinician: Michelle Macdonald Anticipated date of discharge: 11/10/17 - Constitutional Vitals: Temp Pulse Resp BP Pulse Ox 98.2 F 90 18 143/76 96 11/10/17 15:24 11/10/17 15:24 11/10/17 15:24 11/10/17 15:24 11/10/17 15:24 General appearance: Present: cooperative, A&O X 2, pleasant, no acute distress, answers questions appropriately - Patient Status Disposition: Transfer SNF Condition: Fair Functional capacity at discharge: uses cane/walker Overall status at discharge: patient is not back to baseline - Discharge Instructions Follow Up With: Zaid Haynes MD [Primary Care Provider] - - Diet and Activity Activity: as per physical therapy Diet: advance to your usual diet
--- NOTE | 2017-11-10 16:50 | Physician Discharge Referral ---
ExtendedCare Referral Info Transfer To: SNF Provider in Charge: Michelle Amor Provider in Charge after Transfer: PCP Institutional Level of Care: Skilled - Diagnosis (1) Spinal stenosis Status: Acute (2) PEGGY (acute kidney injury) Status: Acute (3) FTT (failure to thrive) in adult Status: Acute (4) Acute metabolic encephalopathy Status: Acute (5) HTN (hypertension) Status: Chronic (6) Hyperlipidemia Status: Chronic (7) History of CVA (cerebrovascular accident) without residual deficits Status: Chronic - Transfer Medications Home Medications: Aspirin/Calcium Carbonate/Mag [Bufferin 325 mg Tablet] 325 mg PO TID PRN [History] Calcium Carbonate [Calcium] 600 mg PO DAILY 11/03/17 [History] Cholecalciferol (D-3) [Vitamin D] 1,000 unit PO DAILY 11/03/17 [History] Ferrous Sulfate [Iron] 650 mg PO DAILY 11/03/17 [History] Acetaminophen [Tylenol] 650 mg PO Q6HR PRN tablet 11/10/17 [Rx] Megestrol Acetate [Megace] 400 mg PO DAILY udc 11/10/17 [Rx] amLODIPine [Norvasc] 10 mg PO DAILY tablet 11/10/17 [Rx] Allergies/Adverse Reactions: 3 Allergy/AdvReac Type Severity Reaction Status Date / Time Penicillins Allergy Hives Verified 11/03/17 15:07 - Respiratory Orders None Smoking Cessation: Smoking cessation has been advised. For more information, call the [place] Tobacco Quit Line at 8-467-AJWU-NOW. - Advance Directives Code Status: Full Code - Mobility Orders Ambulate - Rehabiliation Orders Rehab Orders: Evaluation for Physical Therapy, Evaluation for Occupational Therapy - Diet Orders Regular House Supplement per Dietary: Ensure with every meal CERTIFICATION: I certify that the transfer of the above named patient to an Extended Care Facility is necessary for the continuing treatment of the diagnosis listed. The above information is true and accurate reflection of patient's current condition. Confidential - Redisclosure prohibited without a patient's written consent.
== END 2017-11-10 17:45 ==
LOC: 3BNU 15:04 → EMEROO 15:04 → 3BNU 19:42
PROVIDERS: ADMIT Internal Medicine; ATTEND Registered Nurse